=== PATIENT | female | born 1960 | race Caucasian/White ===

== ENCOUNTER 2023-05-09 14:16 | Outpatient (CLI) | payer MEDICAID ==
--- NOTE | 2023-05-18 09:39 | Mammography Report ---
BILATERAL DIGITAL SCREENING MAMMOGRAM 3D/2D: 05/09/2023 CLINICAL: Routine screening. No prior exams were available for comparison. Both breasts are almost entirely fatty (category a/<25% glandular tissue). No significant masses, calcifications, or other findings are seen in either breast. IMPRESSION: NEGATIVE There is no mammographic evidence of malignancy. A 1 year screening mammogram is recommended. Based on the Tyrer Cuzick model (a risk assessment model) the patients lifetime risk is 3.0% and her 10 year risk is 1.4%. According to the ACR, ACS, and NCCN guidelines, an annual breast MRI exam oksana g with mammogram is recommended if the patients lifetime risk is 20% or greater. This exam was interpreted at Station ID: [id number]. NOTE: For mammograms, a report in lay terms will be sent to the patient. Approximately 15% of breast malignancies will not be visualized mammographically. In the management of a palpable breast mass, a negative mammogram must not discourage biopsy of a clinically suspicious lesion. Electronically Signed By: Den Garnett M.D. acr/ashanti:05/17/2023 12:31:57 letter sent: No_Letter ACR BI-RADS Category 1: Negative 3341F PARENCHYMAL PATTERN: (F) - The breast(s) demonstrate(s) diffuse fatty replacement. BI-RADS CATEGORY: (1) - 1 Mammogram [id number] 1 year screening LATERALITY: (B)
== END 2023-05-09 14:17 | disposition home or self-care (01) ==
LOC: DI 14:16
PROVIDERS: ATTEND Nurse Practitioner
DX: Z12.31 Encounter for screening mammogram for malignant neoplasm of breast (principal)

== ENCOUNTER 2023-05-09 14:20 | Outpatient (CLI) | payer MEDICAID ==
--- NOTE | 2023-05-10 09:00 | DEXA Report ---
PROCEDURE: Dexa Spine and/or Hip INDICATIONS: OSTEOPOROSIS TECHNIQUE: Dual energy x-ray absorptiometry (DXA) was performed on a Face to Face Live System. Regions measur ed are the AP Spine, femoral neck, and if needed forearm. COMPARISON: None FINDINGS: Lumbar Spine: L2, L4. L1 and L3 excluded due to bone cement. Bone Mineral Density 0.771 g/cm/cm,T score -3.6. Osteoporosis. Right Femoral Neck: Bone Mineral Density 0.498 g/cm/cm, T score -3.9. Osteoporosis. Right Hip: Bone Mineral Density 0.452 g/cm/cm,T score -4.4. Osteoporosis. Left Forearm: Bone Mineral Density 0.378 g/cm/cm, T score -5.7. Osteoporosis. (T score greater or equal to -1.0: NORMAL) (T score from -1.1 to -2.4: OSTEOPENIA) (T score less than or equal to -2.5 to: OSTEOPOROSIS) Impression: By WHO criteria, this patient has osteoporosis. Patients with diagnosis of osteoporosis or osteopenia should have regular bone mineral density assess ment. For those eligible for Medicare, routine testing is allowed once every 2 years. Testing frequ ency can be increased for patients who have rapidly progressing disease or for those who are receivin g medical therapy to restore bone mass. Reviewed by: Josue Lanier MD on 05/10/2023 8:58 AM PDT Approved by: Josue Lanier MD on 05/10/2023 8:58 AM PDT Station ID: [id number]
== END 2023-05-09 14:21 | disposition home or self-care (01) ==
LOC: DI 14:20
PROVIDERS: ATTEND Nurse Practitioner
DX: M81.0 Age-related osteoporosis without current pathological fracture (principal)

== ENCOUNTER 2023-06-24 11:27 | Outpatient (CLI) | payer MEDICAID ==
--- NOTE | 2023-06-24 12:37 | XRAY Report ---
PROCEDURE: Thoracic Spine 2 View INDICATIONS: MID BACK PAIN TECHNIQUE: 2 views of the thoracic spine were acquired. COMPARISON: None. FINDINGS: Bones: Diffusely decreased osseous position. Mild to moderate compression deformities of several thor acic vertebral bodies. Multilevel degenerative changes of the thoracic spine with disc height loss, d egenerative endplate changes and spurring. No suspicious bony lesions. 12 pairs of ribs are noted, a nd appear intact where visualized. Compression deformities of lumbar vertebral body status post vert ebroplasty. Soft tissues: No paravertebral stripe thickening. Right upper quadrant surgical clips. IMPRESSION: Degenerative changes of the thoracic spine with decreased osseous mineralization. There are several m ild and moderate compression deformities of the thoracic spine. If concern for acute compression frac ture, recommend correlation with point tenderness or MRI for further evaluation. Compression deformit ies of the lumbar spine status post vertebroplasty. Reviewed by: Adama Ashley MD on 06/24/2023 12:35 PM PST Approved by: Adama Ashley MD on 06/24/2023 12:35 PM PST Station ID: [id number]
== END 2023-06-24 11:28 | disposition home or self-care (01) ==
LOC: DI 11:27
PROVIDERS: ATTEND Acupuncturist
DX: M47.814 Spondylosis without myelopathy or radiculopathy, thoracic region (principal); M43.8X4 Other specified deforming dorsopathies, thoracic region

== ENCOUNTER 2023-07-19 12:39 | Outpatient (CLI) | payer MEDICARE ==
[2023-07-19 17:41] LABS: BASOPHILS # (AUTO) 0.1 10^3/uL (0.0-0.1); BASOPHILS % (AUTO) 0.9 %; EOSINOPHILS # (AUTO) 0.1 10^3/uL (0.0-0.7); EOSINOPHILS % (AUTO) 1.7 %; HCT - HEMATOCRIT 38.7 % (37.0-47.0); HGB - HEMOGLOBIN 12.4 g/dL (12.0-16.0); LYMPHOCYTES # (AUTO) 2.4 10^3/uL (1.5-3.5); LYMPHOCYTES % (AUTO) 35.3 %; MEAN CORPUSCULAR HEMOGLOBIN 28.4 pg (27.0-31.0); MEAN CORPUSCULAR VOLUME 88.8 fL (81.0-99.0); MEAN PLATELET VOLUME 10.3 fL (7.9-10.8); MONOCYTES # (AUTO) 0.5 10^3/uL (0.0-1.0); MONOCYTES % (AUTO) 6.5 %; NEUTROPHILS # (AUTO) 3.8 10^3/uL (1.5-6.6); NEUTROPHILS % (AUTO) 55.3 %; PLT - PLATELET COUNT 339 10^3/uL (130-450); RED BLOOD COUNT 4.36 10^6/uL (4.20-5.40); WHITE BLOOD COUNT 6.9 x10^3/uL (4.8-10.8)
[2023-07-19 17:58] LABS: ALBUMIN 4.3 g/dL (3.2-5.5); ALBUMIN/GLOBULIN RATIO 1.2 (1.0-2.2); ALKALINE PHOSPHATASE 109 IU/L (42-121); ALT ALANINE AMINOTRANSFERASE 7 IU/L (10-60); AST ASPARTATE AMINOTRANSFERASE 13 IU/L (10-42); BILIRUBIN,TOTAL 0.3 mg/dL (0.2-1.0); BUN - BLOOD UREA NITROGEN 8 mg/dL (6-20); CARBON DIOXIDE - CO2 30 mmol/L (21-32); CHLORIDE 101 mmol/L (101-111); CHOL/HDL RATIO 2.2 (<4.4); CHOLESTEROL 209 mg/dL; CREATININE 0.5 mg/dL (0.6-1.3); GFR - MDRD 124 (>89); GLUCOSE 72 mg/dL (74-104); HDL CHOLESTEROL 95 mg/dL; LDL CHOLESTEROL,CALCULATED 96 mg/dL; POTASSIUM 4.5 mmol/L (3.5-4.5); SODIUM 137 mmol/L (135-145); TOTAL PROTEIN 7.8 g/dL (6.4-8.9); TRIGLYCERIDES 88 mg/dL (48-352); VLDL CHOLESTEROL 18 mg/dL
[2023-07-19 18:07] LABS: THYROID STIMULATING HORMONE 1.71 uIU/mL (0.34-5.60)
== END 2023-07-19 12:40 | disposition home or self-care (01) ==
LOC: LAB.N 12:39
PROVIDERS: ATTEND Nurse Practitioner
DX: R53.83 Other fatigue (principal); Z51.81 Encounter for therapeutic drug level monitoring; Z13.220 Encounter for screening for lipoid disorders; Z79.899 Other long term (current) drug therapy
CPT/HCPCS: 36415; 80053; 80061; 80175; 82607; 83721; 84443; 85025

== ENCOUNTER 2023-07-27 10:57 | Outpatient (CLI) | payer MEDICARE, MEDICAID ==
[2023-07-27 18:00] LABS: HCT - HEMATOCRIT 39.7 % (37.0-47.0); HGB - HEMOGLOBIN 12.5 g/dL (12.0-16.0); MEAN CORPUSCULAR HEMOGLOBIN 28.3 pg (27.0-31.0); MEAN CORPUSCULAR HGB CONC 31.5 g/dL (32.0-36.0); MEAN CORPUSCULAR VOLUME 89.8 fL (81.0-99.0); MEAN PLATELET VOLUME 10.3 fL (7.9-10.8); RED BLOOD COUNT 4.42 10^6/uL (4.20-5.40); RED CELL DISTRIBUTION WIDTH 12.9 % (12.0-15.0); WHITE BLOOD COUNT 6.8 x10^3/uL (4.8-10.8)
[2023-07-27 18:22] LABS: CRP - C-REACTIVE PROTEIN < 0.5 mg/dL (<0.5); URIC ACID 4.4 mg/dL (2.3-6.6)
[2023-07-27 18:35] LABS: RHEUMATOID FACTOR NEGATIVE (Negative)
[2023-07-29 17:08] LABS: ANTI-DNA (DS) AB QN <1 IU/mL (0-9)
== END 2023-07-27 10:58 | disposition home or self-care (01) ==
LOC: LAB.N 10:57
PROVIDERS: ATTEND Nurse Practitioner
DX: M25.50 Pain in unspecified joint (principal)
CPT/HCPCS: 36415; 84550; 85027; 85651; 86038; 86140; 86200; 86225; 86235; 86430

== ENCOUNTER 2023-12-29 10:37 | Outpatient (CLI) | payer MEDICARE, MEDICAID | END 2023-12-29 23:59 | disposition EMS.NT | LOC: EMS 10:37 | DX: R42 Dizziness and giddiness (principal) ==

== ENCOUNTER 2024-01-18 12:39 | Outpatient (CLI) | payer MEDICAID, MEDICARE ==
[~2024-01-18 12:39] MED LIST: GADOTERATE MEGLUMINE 7.5 MMOL/15 ML VIAL ONE
[2024-01-18 13:03] LABS: CREATININE 0.6 mg/dL (0.6-1.3)
--- NOTE | 2024-01-18 15:23 | MRI Report ---
PROCEDURE: Thoracic Spine WO INDICATIONS: HIST OF COMPRESION FX, SPINAL STENOSIS TECHNIQUE: Noncontrast sagittal T1 spine echo and T2 fast spin echo, sagittal STIR, axial T1 and T2 fast spin ec ho through the thoracic spine. COMPARISON: X-ray thoracic spine 06/24/2023. FINDINGS: Image quality: Excellent. Alignment and Curvature: There is normal bony alignment. Bone Marrow: Multilevel chronic vertebral body compression deformities including mild at T3, moderat e at T4, mild at T6, moderate at T7, T8, T9, T10 and T12. Marrow is of normal overall signal. No acu te vertebral body compression fractures. Spinal Cord: Visualized spinal cord is normal in size and signal. Paraspinous Soft Tissues: No paravertebral masses. Miscellaneous: Multilevel mild disc desiccation and height loss with mild posterior disc bulges. On axial images, central canal and foramina appear widely patent at all scanned levels. IMPRESSION: 1.Multilevel chronic thoracic vertebral body compression deformities as described above. No significa nt retropulsion. 2.Degenerative changes of the thoracic spine without central canal or neuroforaminal stenosis. Reviewed by: Adama Ashley MD on 01/18/2024 3:22 PM PDT Approved by: Adama Ashley MD on 01/18/2024 3:22 PM PDT Station ID: [id number]
[2024-01-18] MEDS: GADOTERATE MEGLUMINE 7.5 MMOL/15 ML VIAL IVP ONE (18:11)
--- NOTE | 2024-01-19 09:56 | MRI Report ---
PROCEDURE: Lumbar Spine W/WO INDICATIONS: HIST OF COMPRESION FX, SPINAL STENOSIS CONTRAST: 10ml clariscan TECHNIQUE: Noncontrast sagittal T1 spin echo and T2 fast spin echo, sagittal STIR, axial T1 and T2 fast spin ech o through the lumbar spine. In cases with scoliosis, additional coronal T2 fast spin echo may be per formed. After the administration of contrast, sagittal and axial T1 spin echo with fat saturation th rough the lumbar spine. COMPARISON: None. FINDINGS: Image quality: Excellent. Alignment and curvature: Mild levocurvature of the lumbar spine. Straightening of the normal lumbar l ordosis. Marrow: Mild compression deformities of L1 and L3 status post vertebroplasty. Mild compression deform ity of L2. Moderate compression deformities of L4 and L5. No acute vertebral body compression fractur es. No suspicious marrow enhancement. Spinal cord: Conus medullaris terminates at the L1-L2 level. Visualized spinal cord demonstrates no rmal signal, without suspicious enhancement. Paraspinous soft tissues: No paravertebral masses or abnormal enhancement. T12-L1: Disc desiccation and mild disc bulge. Facet arthropathy. No central canal or neuroforaminal stenosis. L1-L2: Disc desiccation and minimal disc bulge. Facet arthropathy and thickening of ligamentum fla vum. No significant central canal or neuroforaminal stenosis. L2-L3: Disc desiccation and posterior disc bulge. Facet arthropathy and thickening of ligamentum f lavum. No significant central canal or neuroforaminal stenosis. L3-L4: Disc desiccation and mild disc bulge. Facet arthropathy and thickening of ligamentum flavum. Mild central canal stenosis. Mild bilateral neuroforaminal stenosis. L4-L5: Disc desiccation. Facet arthropathy and thickening of ligamentum flavum. Mild central canal and mild bilateral neuroforaminal stenosis. L5-S1: Disc desiccation. Facet arthropathy. No central canal stenosis. Mild bilateral neuroforamina l stenosis. IMPRESSION: 1.Multilevel chronic compression deformities of the lumbar spine status post L1 and L3 vertebroplasty . No acute vertebral body compression deformities. 2.Mild multilevel degenerative changes of the lumbar spine as described above. Reviewed by: Adama Ashley MD on 01/19/2024 9:55 AM PDT Approved by: Adama Ashley MD on 01/19/2024 9:55 AM PDT Station ID: [id number]
== END 2024-01-18 12:40 | disposition home or self-care (01) ==
LOC: LAB 12:39
PROVIDERS: ATTEND Acupuncturist
DX: M48.061 Spinal stenosis, lumbar region without neurogenic claudication (principal); M47.816 Spondylosis without myelopathy or radiculopathy, lumbar region; M47.817 Spondylosis without myelopathy or radiculopathy, lumbosacral region; M47.814 Spondylosis without myelopathy or radiculopathy, thoracic region; Z87.81 Personal history of (healed) traumatic fracture
CPT/HCPCS: 36415; 82565